=== PATIENT | male | born 1975 | race Two or more races ===

== ENCOUNTER 2016-12-15 09:26 | Emergency (ER) | payer MEDICAID ==
[~2016-12-15] VITALS: Ht 167.6 cm; Wt 72.6 kg
[~2016-12-15 09:26] MED LIST: CITALOPRAM20 MG PO; DOXYCYCLINE HY100 M4 PO; HYDROXYZINE HCL25 M1 PO; NYSTATIN CREAM15 GM EX; OMEPRAZOLE40 MG PO
--- NOTE | 2016-12-15 10:06 | Emergency Room Report ---
History of Present Illness Time Seen by MD [place] Presenting Problem in Triage Pt arrived:Walked Presenting Problem:CHRONIC ETOH ABUSE PT PRESENTS WITH HISTORY OF DIABETES AND HYPERLIPIDEMIA. PT THINKS HE MIGHT HAVE ANOTHER "SEX INFECTION" BECAUSE HE SLEPT WITH A QUESTIONABLE FEMALE Onset of symptoms date/time:/ or onset unknown for:MEDICAL HX UNKNOWN Treatment Prior to Arrival: [employer] Provided by: Sepsis Risk Assessment: Temp: 97 B/P: 155/91 MAP: 112 Pulse: 103 Resp: 18 Recent fever? N Clinical Suspician of Infection? N Mental Status: 1 - Regular (Normal Baseline) Sepsis Risk:Low Sepsis Risk Have you (or family members/close friends) recently traveled outside the [place]? N If Yes, where/when: Have you had exposure to infectious disease within the past month? TB? Other? Specify: Here for possible STD exposure, requesting prophylaxis. ALLERGIES Coded Allergies: No Known Allergies (12/15/16) Home Medications Active Scripts Doxycycline Hyclate (Vibramycin) 100 MG PO BID #20 CAP Prov: 03/06/16 Reported Medications HYDROXYZINE HCL (Hydroxyzine HCl) 25 MG PO NEEDED #60 Omeprazole (Omeprazole 40MG) 40 MG PO DAILY #30 History Medical History General CAD? No Angina: Yes [place]: No Hypertension? No Hyperlipidemia? No CHF? No DVT? No PE? No COPD? No Asthma? No Anemia? No GERD? No Gastric ulcers? No GI Bleed? No Hernia? No Thyroid Problems? No Hypothyroidism? No CVA? No Seizures? No Diabetes? No Insulin Dependent: No Insulin Pump: No Home FSBS? No Renal Insuffiency? No End Stage Renal Disease? No UTI? No Stones? No BPH? No GB Disease: No Nephritic Syndrome? No Asplenia? No Hepatitis? No Sickle Cell Disease? No Arthritis? No Migraines? No Cataracts? No Glaucoma? No MRSA? No HIV? No TB? No Anxiety? No Depression? No Cancer? No Immunization Hx Ped.Immunizations UTD Yes DT/Tetanus NOT SURE Surgical Hx Previous Surgery?Y I&D Social History Smoking Hx Smoker: Unknown if Ever Smoked Tobacco: No Type N/A Are you/the child exposed to second-hand smoke: No Alcohol Alcohol: Yes Review of Systems All Other Systems Reviewed and Negative Genitourinary hx stds. denies: frequency, hesitancy, hematuria, penis pain, genital lesions ( dyer after urination). Comment pmh DM; doesn't monitor blood sugars Physical Exam Vital Signs Vital Signs Date Time Temp Pulse Resp B/P Pulse O2 O2 Flow FiO2 Ox Delivery Rate 12/15 0934 97.0 103 18 155/91 99 General Appearance normal appearance, WD/WN, no apparent distress Eye Exam - bilateral eye normal exam, bilateral eye PERRL (no drainage) Neck normal inspection, full range of motion Respiratory Status Yes: trachea midline, chest symmetrical, non tender chest. No: respiratory distress, tender on palpation, use of accessory muscles, pain on inspiration, pain on expiration, productive cough, non productive cough. Lung Sounds bilateral: normal breath sounds, lungs clear. Cardiovascular no peripheral edema Gastrointestinal normal bowel sounds, normal exam, non tender, soft Back no CVA tenderness Extremities normal range of motion Neurologic alert, oriented x 3 Glascow Coma Scale Glascow Coma Scale Response Value EYE response: 4 Spontaneously 4 MOTOR response: 6 OBEYS 6 VERBAL response: 5 Oriented & Converses 5 Total 15 Skin intact, normal color (no rash) Medical Decision Making LABS/Meds/Orders Pt receiving controlled substance in ED? No (RN counselled STD prevention) Results/Orders Laboratory Tests 12/15/16 0943: Ur Chlamydia DNA (PCR) Cancelled, Urine GC DNA Probe Cancelled 12/15/16 0943: C.trachomatis DNA (SHOBHA) Pending, N.gonorrhoeae RNA Pending Current Medication Orders Sig/Digna Start time Last Medication Dose Route Stop Time Status Admin Azithromycin 1,000 MG ONCE ONE 12/15 1000 DC 12/15 PO 12/15 1001 0956 Lidocaine HCl 0.9 ML ONCE ONE 12/15 1000 DC 12/15 IM 12/15 1001 0957 Azithromycin 0 .STK-MED ONE 12/15 0954 DC PO Ceftriaxone Sodium 0 .STK-MED ONE 12/15 0954 DC .ROUTE Lidocaine HCl 0 .STK-MED ONE 12/15 0954 DC IJ Ceftriaxone Sodium 250 MG ONCE ONE 12/15 0945 DC 12/15 IM 12/15 0946 0956 Orders Procedure Date/time Status CHLAMYDIA/GC 12/15 0947 Active Departure Departure Time of Disposition 0957 Disposition DC Home or Self Care(routine) Clinical Impression Primary Impression: Possible exposure to STD Condition STABLE Referrals ASHLEIGH CARPENTER (Family) Patient Instructions How to Detect and Treat STDs Additional Instructions See Dr. Conti for follow up in two weeks; strict condom use with sexual activity; you may see Dr. Carpenter for STD exposures or symptoms you may have in the future. Discharge Counseling Counseled pt/family regarding diagnosis, medications/RX, follow up needs ED Critical Care Critical Care No at 1009
[2016-12-15 10:09] VITALS: BP 144/90
[2016-12-16 16:36] LABS: Neisseria gonorrhoeae, NAA Negative (Negative)
== END 2016-12-15 10:10 | disposition home or self-care (01) ==
LOC: ER 09:26
PROVIDERS: Emergency Medicine
DX: Z20.2 Contact with and (suspected) exposure to infections with a predominantly sexual mode of transmission (principal); Z87.440 Personal history of urinary (tract) infections; E11.9 Type 2 diabetes mellitus without complications; F10.10 Alcohol abuse, uncomplicated